=== PATIENT | female | born 1975 | race Caucasian/White ===

== ENCOUNTER 2017-08-21 19:22 | Emergency (ER) | payer BC ==
[2017-08-21] MEDS ORDERED: Ketorolac Tromethamine 30 MG/ML VIAL ONE (20:05)
--- NOTE | 2017-08-21 20:43 | RAD ---
THREE VIEWS RIGHT ANKLE 08/21/17 HISTORY: Right ankle pain after injury. AP, lateral and oblique views right ankle is obtained. No evidence of right ankle fractures, subluxat ions or bony lesions seen. IMPRESSION: Normal three views right ankle. POS: [facility]
--- NOTE | 2017-08-21 21:00 | RAD ---
THREE VIEWS SACRUM AND COCCYX 08/21/17 HISTORY: AP, pelvic inlet, and lateral views sacrum and coccyx is obtained. HISTORY: Injury and pain posterior pelvis. FINDINGS/IMPRESSION: Sacral and coccygeal series demonstrates no evidence of fractures, subluxations or bony lesion of the sacrum or coccyx. POS: [facility]
--- NOTE | 2017-08-21 21:55 | RAD ---
TWO VIEWS LUMBAR SPINE 08/21/17 HISTORY: Trauma and back injury. AP and lateral views lumbar spine is obtained. Small anterior osteophytes seen in the L1 and L4 levels. No evidence of acute fractures or bony lesio ns seen. There appears to be an area of radiopaque density over the mid to lower pole of the right kidney comp atible with a right renal calculus. IMPRESSION: 1. Approximately 9 mm right renal calculus. Additional smaller upper pole right renal calculi ma y also be present. 2. No evidence of significant lumbar spine abnormality seen. POS: [facility]
== END 2017-08-21 21:25 | disposition home or self-care (01) ==
LOC: MADERS 19:22
DX: S96.911A Strain of unspecified muscle and tendon at ankle and foot level, right foot, initial encounter (principal); S30.0XXA Contusion of lower back and pelvis, initial encounter; I10 Essential (primary) hypertension; Z79.899 Other long term (current) drug therapy; W18.30XA Fall on same level, unspecified, initial encounter
CPT/HCPCS: 72100; 72220; 96372; J1885

== ENCOUNTER 2018-05-10 09:32 | Outpatient (CLI) | payer BC ==
[2018-05-10 11:06] LABS: Anion Gap 13 mmol/L (10-20); BUN (Urea Nitrogen) 13 mg/dL (7.0-18.7); Calc. Creatinine Clearance 0 mL/min (70-130); Calcium 9.5 mg/dL (7.8-10.44); Carbon Dioxide 29 mmol/L (22-29); Chloride 103 mmol/L (98-107); Estimated GFR-MDRD 89; Glucose 131 mg/dL (70-105); Sodium 142 mmol/L (136-145)
[2018-05-10 11:12] LABS: #Basophils 0.1 thou/uL (0.0-0.2); #Eosinphils 0.3 thou/uL (0.0-0.7); #Lymphocytes 2.5 thou/uL (1.20-3.40); #Monocytes 0.5 thou/uL (0.11-0.59); #Neutrophils 5.2 thou/uL (1.40-6.50); %Basophils 0.8 % (0.0-1.0); %Lymphocytes 29.1 % (21.0-51.0); %Monocytes 6.2 % (0.0-10.0); %Neutrophils 60.8 % (42.0-75.0); Hemoglobin 12.2 g/dL (12.0-16.0); Mean Corpuscular HGB CONC 30.7 g/dL (32.0-36.0); Mean Corpuscular Hemoglobin 26.1 pg (27.0-31.0); Mean Corpuscular Volume 84.8 fL (78.0-98.0); Mean Platelet Volume 7.9 fL (7.4-10.4); Platelet Count 340 thou/uL (130-400); RBC Distribution Width 14.2 % (11.5-14.5); Red Blood Cell (RBC) Count 4.69 mill/uL (4.20-5.40); White Blood Cell (WBC) Count 8.6 thou/uL (4.8-10.8)
[2018-05-10 12:46] LABS: Potassium 2.9 mmol/L (3.5-5.1)
== END 2018-05-10 09:33 ==
LOC: MADLABBHPM 09:32
PROVIDERS: ATTEND Family Medicine
DX: E04.9 Nontoxic goiter, unspecified (principal); I10 Essential (primary) hypertension
CPT/HCPCS: 36415; 80048; 84443; 85025; 93005; 93010

== ENCOUNTER 2018-07-13 12:29 | Outpatient (CLI) | payer BC ==
[2018-07-13 13:27] LABS: #Basophils 0.1 thou/uL (0.0-0.2); #Eosinphils 0.2 thou/uL (0.0-0.7); #Lymphocytes 2.3 thou/uL (1.20-3.40); #Monocytes 0.6 thou/uL (0.11-0.59); #Neutrophils 5.5 thou/uL (1.40-6.50); %Basophils 1.2 % (0.0-1.0); %Lymphocytes 26.4 % (21.0-51.0); %Monocytes 6.7 % (0.0-10.0); %Neutrophils 63.7 % (42.0-75.0); Hemoglobin 12.5 g/dL (12.0-16.0); Mean Corpuscular HGB CONC 30.3 g/dL (32.0-36.0); Mean Corpuscular Hemoglobin 25.3 pg (27.0-31.0); Mean Corpuscular Volume 83.5 fL (78.0-98.0); Mean Platelet Volume 7.7 fL (7.4-10.4); Platelet Count 343 thou/uL (130-400); RBC Distribution Width 14.3 % (11.5-14.5); Red Blood Cell (RBC) Count 4.93 mill/uL (4.20-5.40); White Blood Cell (WBC) Count 8.6 thou/uL (4.8-10.8)
[2018-07-13 13:50] LABS: ALT (SGPT) 50 U/L (8-55); AST (SGOT) 18 U/L (5-34); Albumin 4.2 g/dL (3.5-5.0); Alkaline Phosphatase 76 U/L (40-150); Anion Gap 15 mmol/L (10-20); BUN (Urea Nitrogen) 12 mg/dL (7.0-18.7); Bilirubin, Total 0.2 mg/dL (0.2-1.2); Calc. Creatinine Clearance 0 mL/min (70-130); Calcium 9.7 mg/dL (7.8-10.44); Carbon Dioxide 26 mmol/L (22-29); Chloride 103 mmol/L (98-107); Estimated GFR-MDRD Greater than 90; Globulin 3.1 g/dL (2.4-3.5); Glucose 116 mg/dL (70-105); Potassium 3.2 mmol/L (3.5-5.1); Protein, Total 7.3 g/dL (6.0-8.3); Sodium 141 mmol/L (136-145)
== END 2018-07-13 12:30 | disposition home or self-care (01) ==
LOC: MADLABBHPM 12:29
PROVIDERS: ATTEND Family Medicine
DX: E87.6 Hypokalemia (principal); I10 Essential (primary) hypertension; R42 Dizziness and giddiness
CPT/HCPCS: 36415; 80053; 82088; 84244; 84443; 85025; 93005; 93010

== ENCOUNTER 2018-08-04 08:52 | Outpatient (CLI) | payer BC ==
--- NOTE | 2018-08-04 10:13 | ULT ---
THYROID ULTRASOUND: Date: 08/04/2018 COMPARISON: None HISTORY: Thyromegaly, thyroid goiter TECHNIQUE: Multiplanar grayscale sonographic imaging of the thyroid gland obtained FINDINGS: The thyroid gland is diffusely enlarged, heterogeneous, and macrolobulated, with a thyroid isthmus me asuring 1.2 cm, right lobe measuring 4.0 x 2.4 x 1.6 cm, and left lobe measuring 5.2 x 5.1 x 2.2 cm. Evaluation is limited without comparison imaging. Incidental note is made of a cyst within the ri ght lobe measuring 5 x 5 x 6 mm. The thyroid gland appears to be completely replaced with nodules with no discrete dominant nodule eccy ntified. Findings are most consistent with multinodular goiter. Comparison to prior imaging would be beneficial. IMPRESSION: Findings most consistent with multinodular goiter. Please see above discussion. Transcribed Date/Time: 08/04/2018 11:15 AM
== END 2018-08-04 08:53 | disposition home or self-care (01) ==
LOC: MADULT 08:52
PROVIDERS: ATTEND Family Medicine
DX: E04.9 Nontoxic goiter, unspecified (principal)
CPT/HCPCS: 76536

== ENCOUNTER 2018-11-25 12:12 | Outpatient (CLI) | payer BC ==
--- NOTE | 2018-11-25 14:34 | RAD ---
4 VIEWS RIGHT KNEE: Date: 11/25/18 COMPARISON: None. HISTORY: Chronic pain. FINDINGS: There is a probable small knee joint effusion. There is mild patellofemoral joint space narrowing. Th ere is no acute fracture or dislocation. IMPRESSION: No acute osseous abnormality. POS: [facility]
== END 2018-11-25 12:13 | disposition home or self-care (01) ==
LOC: MADRAD 12:12
PROVIDERS: ATTEND Family Medicine
DX: M25.561 Pain in right knee (principal)

== ENCOUNTER 2020-03-14 20:03 | Outpatient (CLI) | payer BC ==
--- NOTE | 2020-03-14 20:32 | CT ---
CT ABDOMEN AND PELVIS WITHOUT CONTRAST: STONE PROTOCOL 03/14/20 HISTORY: Pain. COMPARISON: None. FINDINGS: There is a mass within the left lower lobe not completely evaluated on this exam and may measure up t o 2.5 cm in size. No pericardial effusion. Diffuse hepatic steatosis. There are multiple small round foci of hyperdensity within the right and left lobe of the liver, larg est in segment Engelhard, axial image 18 measuring 1 cm in size. Large calculus within the right renal pelvis measuring up to 13 mm with punctate small adjacent calci fications in the right inferior renal collecting system. Mild right sided hydronephrosis. No signific ant perinephric stranding. The right ureter is without dilatation. Left ureter is without dilatation. No left sided renal calculi. Aortic contour is nonaneurysmal. A few retroperitoneal and periaortic lymph nodes. Suture is noted along the cecal apex. No acute osseous abnormality. IMPRESSION: 1. Concern for mass in the left lower lobe measuring up to 2.5 cm. Nonemergent follow-up CT of t he chest with contrast recommended. 2. Diffuse hepatic steatosis and hepatomegaly with multiple small hyperdense foci on this noncon trast exam. This is incompletely evaluated and follow-up liver protocol CT or MRI is recommended none mergently. 3. Large calculus of the right renal pelvis with low grade right sided hydronephrosis and mild t hickening of the urothelium. There is also a few punctate 2 to 3 mm calculi at the right inferior nils al collecting system. No hydroureter or stones within the urinary bladder. Urologic consultation advi sed. Code LN Code T POS: [facility]
== END 2020-03-14 20:04 | disposition home or self-care (01) ==
LOC: MADRAD 20:03
PROVIDERS: ATTEND Family Medicine
DX: R10.9 Unspecified abdominal pain (principal); K76.0 Fatty (change of) liver, not elsewhere classified; N20.0 Calculus of kidney
CPT/HCPCS: 74176; 87086

== ENCOUNTER 2021-01-06 17:14 | Emergency (ER) | payer BC ==
[2021-01-06] MEDS ORDERED: Cyclobenzaprine 10 MG TAB ONE (18:18)
[2021-01-06] MEDS ORDERED: Ketorolac Tromethamine 30 MG/ML VIAL ONE (18:18)
== END 2021-01-06 18:44 | disposition home or self-care (01) ==
LOC: MADERS 17:14
DX: M43.6 Torticollis (principal); I10 Essential (primary) hypertension; Z79.899 Other long term (current) drug therapy
CPT/HCPCS: 96372; 99283; J1885

== ENCOUNTER 2022-10-20 11:43 | Outpatient (CLI) | payer BC | END 2022-10-20 11:44 | disposition home or self-care (01) | LOC: MADEKG 11:43 | PROVIDERS: ATTEND Orthopaedic Surgery Orthopaedic Trauma | DX: S42.352K Displaced comminuted fracture of shaft of humerus, left arm, subsequent encounter for fracture with nonunion (principal) | CPT/HCPCS: 93005; 93010 ==

== ENCOUNTER 2022-11-26 09:31 | Outpatient (CLI) | payer BC ==
[2022-11-26 10:38] LABS: ALT (SGPT) 86 U/L (8-55); AST (SGOT) 55 U/L (5-34); Albumin 4.4 g/dL (3.5-5.0); Alkaline Phosphatase 95 U/L (40-110); Anion Gap 16 mmol/L (10-20); BUN (Urea Nitrogen) 12 mg/dL (7.0-18.7); Bilirubin, Total 0.3 mg/dL (0.2-1.2); Calc. Creatinine Clearance 0 mL/min (70-130); Calcium 9.6 mg/dL (7.8-10.44); Carbon Dioxide 23 mmol/L (22-29); Chloride 105 mmol/L (98-107); Estimated GFR 106; Glucose 134 mg/dL (70-105); Magnesium 1.8 mg/dL (1.6-2.6); Phosphorus 3.2 mg/dL (2.3-4.7); Potassium 3.7 mmol/L (3.5-5.1); Protein, Total 7.4 g/dL (6.0-8.3); Sodium 140 mmol/L (136-145)
[2022-11-27 08:46] LABS: Reference Lab Name LABCORP
[2022-11-27 08:47] LABS: Ref Lab Test Ordered KIDNEY STONE UR SAT
== END 2022-11-26 09:32 | disposition home or self-care (01) ==
LOC: MADRAD 09:31
PROVIDERS: ATTEND Internal Medicine
DX: E11.65 Type 2 diabetes mellitus with hyperglycemia (principal); E03.9 Hypothyroidism, unspecified; M47.814 Spondylosis without myelopathy or radiculopathy, thoracic region; M47.816 Spondylosis without myelopathy or radiculopathy, lumbar region; M47.812 Spondylosis without myelopathy or radiculopathy, cervical region; E83.52 Hypercalcemia
CPT/HCPCS: 36415; 72040; 72070; 72100; 74018; 80053; 82330; 82340; 82652; 83735; 83970; 84100; 84443

== ENCOUNTER 2023-03-01 23:49 | Emergency (ER) | payer BC ==
[2023-03-02 00:34] LABS: Bilirubin Negative (Negative); Blood, Urine Moderate (Negative); Glucose, Urine (Dipstick) 500 mg/dL (Negative); Ketone, Urine Negative (Negative); Leukocyte Trace (Negative); Nitrite Negative (Negative); Protein, Urine (Dipstick) Trace mg/dL (Neg-Trace); Urobilinogen 0.2 mg/dL (Less than 2)
[2023-03-02 00:37] LABS: Bacteria/HPF Rare-Few HPF (None Seen); CAUTI Indications for Culture Dysuria,urgency,freq; Clarity Cloudy (Clear); RBC/HPF 21-50 HPF (0-3); WBC/HPF 21-50 HPF (0-3)
[2023-03-02 00:38] LABS: Urine Culture Reflex Yes Yes
[2023-03-02] MEDS ORDERED: Acetaminophen 500 MG TAB ONE ×2 (00:38→08:40)
[2023-03-02] MEDS ORDERED: Ondansetron PF 4 MG/2 ML Vial ONE ×5 (00:38→08:04)
[2023-03-02] MEDS ORDERED: Sodium Chloride 0.9% 3,000 ML ONE (00:38)
[2023-03-02] MEDS ORDERED: cefTRIAXone (ROCEPHIN) 2 GM VIAL ONE (01:01)
[2023-03-02] MEDS ORDERED: Sodium Chloride 0.9% 100 ML ONE (01:01)
[2023-03-02 01:10] LABS: BHCG - Serum Negative (NEGATIVE); Pregs Control Background? CLEAR/WHITE (CLR/WHITE); Pregs Control Bar Appear? YES (CONTROL BAR)
[2023-03-02 01:14] LABS: ALT (SGPT) 40 U/L (8-55); AST (SGOT) 21 U/L (5-34); Albumin 4.1 g/dL (3.5-5.0); Alkaline Phosphatase 110 U/L (40-110); Anion Gap 17 mmol/L (10-20); BUN (Urea Nitrogen) 7 mg/dL (7.0-18.7); Bilirubin, Total 0.5 mg/dL (0.2-1.2); Calc. Creatinine Clearance 0 mL/min (70-130); Calcium 9.7 mg/dL (7.8-10.44); Carbon Dioxide 20 mmol/L (22-29); Chloride 101 mmol/L (98-107); Estimated GFR 98; Globulin 3.5 g/dL (2.4-3.5); Glucose 229 mg/dL (70-105); Lipase 13 U/L (8-78); Potassium 3.2 mmol/L (3.5-5.1); Protein, Total 7.6 g/dL (6.0-8.3); Sodium 135 mmol/L (136-145)
[2023-03-02 01:26] LABS: Band 1 % (5-11); Hematocrit 44.4 % (36.0-47.0); Hemoglobin 13.5 g/dL (12.0-16.0); Lymphocytes 7 % (21-51); MDiff Complete? YES; Mean Corpuscular HGB CONC 30.5 g/dL (32.0-36.0); Mean Corpuscular Hemoglobin 24.5 pg (27.0-31.0); Mean Corpuscular Volume 80.2 fl (78.0-98.0); Mean Platelet Volume 8.9 fL (7.4-10.4); Monocytes 6 % (0-10); Neutrophil 86 % (42-75); Ovalocytes SLIGHT = 2-5 cells (100X) (0-1/hpf); Platelet Adequacy Comment Appears Adequate; Platelet Count 328 10x3/uL (130-400); RBC Distribution Width 15.5 % (11.5-14.5); Red Blood Cell (RBC) Count 5.54 mill/uL (4.20-5.40); White Blood Cell (WBC) Count 13.6 10x3/uL (4.8-10.8)
[2023-03-02 01:49] LABS: SARS-CoV-2 NAA Rapid Test Not Detected (NotDetected)
== END 2023-03-02 08:42 | disposition short-term general hospital (02) ==
LOC: MADERS 23:49
DX: N39.0 Urinary tract infection, site not specified (principal); A41.9 Sepsis, unspecified organism; N20.0 Calculus of kidney; E11.9 Type 2 diabetes mellitus without complications; I10 Essential (primary) hypertension; Z79.899 Other long term (current) drug therapy; Z20.822 Contact with and (suspected) exposure to COVID-19; Z79.84 Long term (current) use of oral hypoglycemic drugs
CPT/HCPCS: 71045; 74176; 80053; 81001; 83605; 83690; 84703; 85025; 87040; 87077; 87086; 93005; 96361; 96365; 96375; 96376; J0696; J2405; J3490; J7050